=== PATIENT | male | born 1965 | race Caucasian/White ===

== ENCOUNTER 2019-02-05 02:17 | Outpatient (CLI) | payer BC, SELFPAY ==
[2019-02-05 11:34] LABS: Anion Gap 5.8 mmol/L (3-11); BUN 16 mg/dL (7-18); CO2 31.2 mmol/L (21.0-32.0); CREATININE 1.27 mg/dL (0.70-1.30); Calculated LDL 103 mg/dL; Chloride 107 mmol/L (98-107); Cholesterol 174 mg/dL (50-200); Estimated GFR 59.55 (mL/min/1.73m2); Glucose 104 mg/dL (70-100); HDL Cholesterol 48 mg/dL (40-60); Potassium 4.9 mmol/L (3.5-5.1); Sodium 144 mmol/L (136-145); Triglyceride 118 mg/dL (30-150)
== END 2019-02-05 02:37 ==
PROVIDERS: Nurse Practitioner; PCP Internal Medicine; Visit Provider Internal Medicine
DX: N18.3 Chronic kidney disease, stage 3 (moderate) (principal); Z13.6 Encounter for screening for cardiovascular disorders; Z13.1 Encounter for screening for diabetes mellitus
CPT/HCPCS: 36415; 80048; 80061; 83036

== ENCOUNTER 2019-02-14 01:07 | Outpatient (CLI) | payer BC, SELFPAY ==
--- NOTE | 2019-02-14 13:30 | DI.MRI_ITS ---
EXAM: MR BRAIN WO CLINICAL HISTORY: head pain, R51 TECHNIQUE: Multiplanar multisequence MRI of the brain was performed. COMPARISON: No exams were available for comparison FINDINGS: The ventricular system is normal in appearances. No signal abnormality identified in the brain. The orbital and temporal bone structures appears intact as does the pituitary. Diffusion weighted imaging shows No evidence of infarction. Susceptibility weighted imaging shows no evidence of intracranial hemorrhage. There is normal flow void in the [place] vasculature. IMPRESSION: Normal brain MRI
== END 2019-02-14 01:27 ==
PROVIDERS: PCP Internal Medicine; Visit Provider Nurse Practitioner
DX: R51 Headache (principal)
CPT/HCPCS: 70551

== ENCOUNTER 2019-03-03 10:45 | Outpatient (CLI) | payer BC, SELFPAY ==
[2019-03-03 12:59] LABS: Abs Immature Grans 0.02 k/cumm (0.0-0.09); Absolute Basophil Count 0.05 k/cumm (0.0-0.2); Absolute Eosinophil Count 0.22 k/cumm (0.0-0.7); Absolute Monocyte Count 0.74 k/cumm (0.11-0.7); Absolute Neutrophil Count 4.52 k/cumm (1.2-6.7); Basophils % 0.6; Eosinophils % 2.8; HCT 45.9 % (40.0-50.0); HGB 15.4 g/dL (13.5-17.5); Immature Grans % 0.3; Lymphocytes % 28.4; Mean Corp. HGB Concentration 33.6 g/dL (32.0-36.0); Mean Corpuscular Hemoglobin 31.1 pg (27.0-33.0); Mean Corpuscular Volume 92.7 fL (80-95); Mean Platelet Volume 10.8 fL (8.0-11.0); Monocytes % 9.5; Neutrophils % 58.4; Platelet Count 255 x1000/uL (130-400); RBC 4.95 m/cumm (4.50-6.00); RBC Distribution Width 13.1 % (11.8-14.1); White Blood Cell Count 7.75 k/cumm (4.4-10.8)
[2019-03-03 13:26] LABS: C-Reactive Protein 0.17 mg/dL (0.0-0.3); TSH (W/Ref FT4) 1.61 uIU/mL (0.36-3.74)
[2019-03-03 13:41] LABS: Vitamin D 25 Total 35.4 ng/ml (30-100)
[2019-03-03 14:20] LABS: ESR 7 mm/hr (1-20)
== END 2019-03-03 11:05 ==
PROVIDERS: PCP Internal Medicine; Visit Provider Internal Medicine
DX: R50.9 Fever, unspecified (principal); R51 Headache; M25.50 Pain in unspecified joint; R00.2 Palpitations; R79.89 Other specified abnormal findings of blood chemistry
CPT/HCPCS: 36415; 82306; 85652; 84443; 85025; 86140

== ENCOUNTER 2019-03-17 07:59 | Outpatient (CLI) | payer BC, SELFPAY | END 2019-03-17 08:19 | PROVIDERS: PCP Internal Medicine; Visit Provider Internal Medicine Cardiovascular Disease | DX: I48.20 Chronic atrial fibrillation, unspecified (principal) | CPT/HCPCS: 93005; 93010 ==

== ENCOUNTER 2019-05-30 06:12 | Day surgery (SDC) | payer BC, SELFPAY ==
[2019-05-30 06:15] VITALS: BP 130/80; PULSE 84; RESP 20; TEMP 36.7; O2SAT 95
[2019-05-30] MEDS: Lactated Ringers 1,000 ML 80 ML IV (06:56)
--- NOTE | 2019-05-30 07:13 | W.PM.HP.N ---
Date of service: 05/30/19 Time of Service: 07:13 Assessment and Plan Assessment and plan (1) Screening for colon cancer: Status: Acute Assessment and plan: I advised colonoscopy. The procedure was described including the risks of perforation with need for surgery or bleeding. Prep instructions discussed. Patient agrees to proceed. History of Present Illness Narrative: 53 y/o male with history of atrial fibrillation, sleep apnea and hyperlipidemia presents for his first screening colonoscopy. He denies a family history of colon cancer, however reports his father had several polyps. He denies any changes in bowel habits including bloody or black tarry stools, abdominal pain, diarrhea or constipation. He denies constitutional symptoms. Denies use of marijuana or any other recreational or illegal drugs. He denies chest pain, palpitations, dyspnea or dyspnea with exertion. He uses his CPAP nightly. 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 His last cardiology follow up was in 02/2019, he is currently working on towards weight loss and will follow up with them in 6 months. He denies prior history or family history of adverse reactions or complications with anesthesia. Review of Systems All systems reviewed & are unremarkable except as noted in HPI and below [facility] Medical History Atrial fibrillation F/U with Dr. Bravo History of cardioversion (06/23/16) Hyperlipidemia (Inactive) Sleep apnea with use of continuous positive airway pressure (CPAP) Tinnitus Social History Smoking/Tobacco Use Status: Never Alcohol Intake: current Alcohol Intake frequency: holidays/special occasions only Drug use: Never Substance use type: does not use What type of physical activity do you participate in: none and normal ROM and activity Do you feel safe at home: Yes Do you feel safe in your relationship?: Yes Meds Home Medications and Allergies Home Medications Medication Instructions Recorded Confirmed Type aspirin [Adult Low Dose Aspirin Ec] 81 mg PO DAILY #90 tab-cap 02/28/17 05/30/19 Rx CPAP MISCELLANEOUS 03/17/19 04/11/19 History cholecalciferol (vitamin D3) 25 1,000 unit PO DAILY 03/17/19 05/30/19 History mcg (1,000 unit) capsule omega-3 fatty acids-fish oil 300 1 cap PO DAILY cap 03/17/19 05/30/19 History mg-500 mg capsule diltiazem HCl 240 mg 240 mg PO DAILY #90 cap 04/19/19 05/30/19 Rx capsule,extended release 24 hr atorvastatin 20 mg tablet 20 mg PO DAILY #90 tab 04/25/19 05/30/19 Rx Allergies Allergy/AdvReac Type Severity Reaction Status Date / Time Sulfa (Sulfonamide AdvReac Intermediate Nausea Unverified 05/30/19 06:15 Antibiotics) Exam Const General: healthy appearing and not in acute distress Nutritional Appearance: well nourished Orientation: oriented x3 HENMT Head: normal to inspection Eyes Sclera: sclerae normal Pupils: PERRL Neck Neck: no lymphadenopathy Thyroid: thyroid normal Carotids: no bruits Resp Effort & Inspection: normal respiratory effort Auscultation: clear to auscultation bilaterally and no wheezes Cardio Rate: regular rate Rhythm: regular rhythm GI Inspection: non-distended Palpation: soft, no hepatosplenomegaly, no hernias and nontender Skin General skin exam: no rashes or lesions noted Neuro General: alert Cognition: normal cognition Extrem General: normal to inspection Psych Affect: normal affect Attitude: cooperative Results Last Vital Signs Temp 98.1 F 05/30/19 06:15 Pulse 84 05/30/19 06:15 Resp 20 05/30/19 06:15 BP 130/80 05/30/19 06:15 Pulse Ox 95 05/30/19 06:15
--- NOTE | 2019-05-30 08:05 | W.PM.DSUDISC ---
Discharge Plan Disposition Patient Disposition: HOME Condition: Good Discharge Details Reason For Visit: Colonoscopy Attending Provider: Rosemary Brown Primary Care Provider: Marita Delvalle Home Meds and New Rx's Prescriptions: Continued cholecalciferol (vitamin D3) 1,000 unit capsule 1,000 unit PO DAILY RF: 0 Fish Oil 300-500 mg capsule 1 cap PO DAILY RF: 0 CPAP miscellaneous RF: 0 aspirin [Adult Low Dose Aspirin] 81 MG tablet,delayed release (DR/EC) 81 mg PO DAILY Qty: 90 RF: 4 diltiazem HCl 240 mg capsule,extended release 24hr 240 mg PO DAILY Qty: 90 RF: 4 atorvastatin 20 mg tablet 20 mg PO DAILY Qty: 90 RF: 4 Discharge Instructions Additional Instructions: Findings: Your colonoscopy was normal. Follow up: Plan for routine screening colonoscopy in 10 years or sooner if symptoms arise. Please call if you develop: fevers >101.5 Nausea or Vomiting Abdominal pain that is not transient DAY SURGERY UNIT POST COLONOSCOPY INSTRUCTIONS 1. Because there will be medication in your system for the next 24 hours, you may feel a little sleepy. Your coordination will be affected. Therefore: a. Do not drive or operate dangerous equipment for 24 hours. b. Do not drink alcohol beverages for 24 hours (not even beer). c. Plan to go home and rest for the day. 2. Generally there are no restrictions on your activity after a day or so has gone by, but you may feel a bit fatigued for a few days. 3 After you arrive home you may have a light meal and return to a normal diet as you can tolerate it without feeling sick to your stomach. 4. After surgery, you may feel pain or discomfort. This should be only transient, but if it persists please contact your doctor. 5. If there are any questions regarding the findings of your procedure, please feel free to contact your doctor. 6. If you are unable to contact your doctor with a problem, contact the hospital at [phone]. 7. Continue all your regular medications unless directed otherwise. I understand the above instructions and have no questions. Signature of Patient or Responsible Adult Escort Date/Time Name of Responsible Adult Escort Signature of Nurse Date/Time Activity:: Activity as Tolerated Diet:: As Tolerated Discharge Orders Discharge Orders: Discharge Order (Routine); Ordered 05/30/19 Ordered By: Rosemary Brown DS: Diagnosis Discharge Diagnosis (1) Screening for colon cancer: Status: Acute
[2019-05-30 08:28] VITALS: BP 109/73; PULSE 80; RESP 18; TEMP 36.4; O2SAT 95
--- NOTE | 2019-05-30 10:49 | COLE_ITS ---
DATE OF PROCEDURE: May 30, 2019 PREOPERATIVE DIAGNOSIS: Screening. POSTOPERATIVE DIAGNOSIS: Normal colon. PROCEDURE: Colonoscopy. SURGEON: Rosemary Brown M.D. ANESTHESIA: General. INDICATIONS: This is a 53-year-old man who presents for his first screening colonoscopy. He is asym ptomatic and has no family history of colon cancer. His father did have polyps removed. PROCEDURE: He was placed in the left [place] position. Propofol was titrated to sedation. Digital rec stephanie exam revealed no abnormalities. The scope was advanced to the cecum without difficulty. His pre p was excellent. The ileocecal valve and appendiceal orifice were clearly identified. The scope was slowly withdrawn with no abnormalities seen within the ascending, transverse, descending, sigmoid co manuel or rectum, including on retroflex view. He tolerated the procedure well and was stable to recove ry. He will need a follow-up screening again in ten years or sooner if symptoms indicate. cc: Marita Delvalle M.D.
== END 2019-05-30 08:50 | disposition home or self-care (01) ==
PROVIDERS: PCP Internal Medicine; Visit Provider Surgery
PROC: 0DJD8ZZ Inspection of Lower Intestinal Tract, Via Natural or Artificial Opening Endoscopic (ICD-10-PCS; CPT 45378; principal; 2019-05-30 07:30)
DX: Z12.11 Encounter for screening for malignant neoplasm of colon (principal); G47.33 Obstructive sleep apnea (adult) (pediatric); Z99.89 Dependence on other enabling machines and devices
CPT/HCPCS: 45378; NC; J2704

== ENCOUNTER 2019-09-29 04:50 | Outpatient (CLI) | payer BC, SELFPAY | END 2019-09-29 05:10 | PROVIDERS: PCP Nurse Practitioner; Visit Provider Internal Medicine Cardiovascular Disease | DX: I48.91 Unspecified atrial fibrillation (principal) | CPT/HCPCS: 93225 ==

== ENCOUNTER 2019-10-03 11:22 | Outpatient (CLI) | payer BC, SELFPAY ==
--- NOTE | 2019-10-03 12:49 | W.HOLTRPT ---
Date of service: 10/03/19 Time of Service: 12:49 Holter Monitor Report Holter Monitor Note: There is a 48-hour Holter monitor ordered for the indication of atrial fibrillation. ?Patient was in atrial fibrillation for the entirety of the recording. ?Maximal heart rate was 166 bpm with an average heart rate of 106 bpm. ?The patient had no episodes of ventricular tachycardia and rare (0.1%) single ventricular ectopic beats. ?The patient had no pauses greater than 3 seconds or evidence of high degree heart block. ?There were no patient triggered events.
== END 2019-10-03 11:42 ==
PROVIDERS: PCP Nurse Practitioner; Visit Provider Internal Medicine Cardiovascular Disease
DX: I48.91 Unspecified atrial fibrillation (principal)
CPT/HCPCS: 93226

== ENCOUNTER 2019-10-21 01:35 | Outpatient (CLI) | payer BC, SELFPAY ==
--- NOTE | 2019-10-21 07:30 | DI.US_ITS ---
APPROVED REPORT EXAM: Comprehensive 2D, Doppler, and color-flow Echocardiogram Patient Location: Out-Patient Junior Estimator: Nehal Arzola RDCS (AE) Indications: Atrial Fibrillation Other Information Study Quality: Fair Conclusion Left Ventricle : The left ventricle is normal size. The left ventricular systolic function is normal. The left ventricular ejection fraction is within the normal range. There is normal left ventricular wall thickness. There is normal LV segmental wall motion. Diastolic function is indeterminate. LVEF i s 60%. Right Ventricle : The right ventricle is normal size. The right ventricular systolic function is norm al. The RVSP is 18.9 mmHg. Atria : The left atrium size is normal. The right atrium size is normal. Valves: There are no hemodynamically significant valvular lesions. Great Vessels : The aortic root is normal in size. The ascending aorta is normal in size. IVC is norm al in size and collapses >50% with inspiration. There is no prior echocardiogram available for comparison. Wall motion Left Ventricle The left ventricle is normal size. The left ventricular systolic function is normal. The left ventric ular ejection fraction is within the normal range. There is normal left ventricular wall thickness. T here is normal LV segmental wall motion. Diastolic function is indeterminate. There is no ventricular septal defect visualized. LVEF is 60%. Right Ventricle The right ventricle is normal size. The right ventricular systolic function is normal. The RVSP is 18 .9 mmHg. Atria The left atrium size is normal. The right atrium size is normal. Aortic Valve Aortic valve is trileaflet. There is no aortic valvular stenosis. No aortic regurgitation is present. Mitral Valve There is mitral annular calcification. No evidence of mitral valve stenosis. Trace to mild mitral reg urgitation. Tricuspid Valve The tricuspid valve is normal in structure. There is no tricuspid valve stenosis. Trace tricuspid reg urgitation. Pulmonic Valve The pulmonary valve is normal in structure. There is no pulmonic valvular stenosis. There is no pulmo rose valvular regurgitation. Great Vessels The aortic root is normal in size. The ascending aorta is normal in size. IVC is normal in size and c ollapses >50% with inspiration. Pericardium There is no pericardial effusion. There is no pleural effusion. 2D Dimensions IVSD d PLAX 0.81 cm M: 0.6-1.2 LV Vol A2C d MOD 121.2 mL LVPW d PLAX 0.82 cm M: 0.6 - 1.2 LV Vol A4C d MOD 123.8 mL LVID d PLAX 4.93 cm M: 4.2 - 5.8 LA vol/ BSA A2C s A-L 29.1 mL/m2 LVDs 3.60 cm M: 2.5 - 4.0 LA vol/ BSA A4C s A-L 56.3 mL/m2 Ao Root d 3.45 cm M: 3.1 - 3.7 LA Vol/ BSA Biplane s A-L 45.8 mL/m2 RA Area A4C 26.29 cm2 LA Area A4C s MOD 35.59 cm2 RA Vol/ BSA A4C s A-L 40.2 mL/m2 LA Area A2C s MOD 22.61 cm2 Ao Asc Diam d 3.49 cm M: 2.6 - 3.4 LV EF A4C MOD 66.0 % LV EF Teichholz 52.2 % LV EF A2C MOD 60.2 % LVEF (Morrison's) 60.91 % M: 52 - 72 LV EF Biplane MOD 60.9 % LV Volume 90.73 mL M: 62 - 150 SV 78.48 mL LV Volume Index 37.03 mL/m2 M: 34 - 74 SV Index 32.04 mL/m2 LV Vol Biplane MOD 128.9 mL FS 26.80 % M-Mode TAPSE 1.86 cm (M/F) >1.7 LV Diastology MV E' medial 0.134 (>0.07 m/s) MV E Vmax 1.05 (0.4-1.3 m/s) LV E/e MED 7.75 (<14) MV E' lateral 0.153 (>0.1 m/s) LV E/e LAT 6.80 (<14) MV E/E' medial 7.77 MV E/E' lateral 6.84 Aortic Valve LVOT Area 3.73 cm2 AoV Area Vmax 3.35 cm2 LVOT Vmax 1.06 m/s AoV Area/ BSA (Vmax) 1.37 cm2/m2 LVOT Mean Dustin. 0.84 m/s GENARO Mean Dustin. 3.56 cm2 LVOT Peak Grad 4.5 mmHg GENARO Mean Dustin. Index 1.45 cm2/m2 LVOT Mean Grad 3.0 mmHg LVOT VTI 0.198 m LVOT Diam s 2.15 cm AoV Vmax 1.18 m/s Velocity Ratio 0.89 AoV Mean Dustin. 0.88 m/s AoV Peak Grad 5.6 mmHg LVOT SV 73.77 mL AoV Mean Grad 3.3 mmHg AoV VTI 0.233 m AoV Area VTI 3.17 cm2 AoV Area/ BSA (VTI) 1.29 cm/m2 Mitral Valve MV DT 191 (160-240 msec) MV PHT 56 msec MV Area PHT 3.96 cm2 Pulmonary Valve PV Vmax 0.82 (0.5-1.5 m/s) RVOT Peak Gr. 1.69 mmHg PV Peak Grad 2.7 mmHg RVOT Mean Gr. 0.95 mmHg PV Mean Grad 1.6 mmHg RVOT VTI 0.138 m PV VTI 0.164 m RVOT Vmax 0.65 m/s Tricuspid Valve TR Peak Grad 15.9 mmHg TR Vmax 1.99 m/s RA Pressure 3.00 mmHg RVSP (TR) 18.9 mmHg
== END 2019-10-21 01:55 ==
PROVIDERS: PCP Nurse Practitioner; Visit Provider Internal Medicine Cardiovascular Disease
DX: I48.91 Unspecified atrial fibrillation (principal)
CPT/HCPCS: 93306

== ENCOUNTER → 2022-01-09 14:44 | Outpatient (CLI) | payer BC, SELFPAY ==
--- NOTE | 2022-01-09 14:15 | DI.RAD_ITS ---
Exam(s) XR CHEST 2V PA LATERAL EXAM: XR CHEST 2V PA LATERAL CLINICAL HISTORY: URI, ACUTE--J06.9 TECHNIQUE: 2D digital imaging was performed. COMPARISON: CR CHEST 2 VIEWS PA,LAT from 09/01/2015 FINDINGS: MEDIASTINUM: Normal. HEART: Normal. PULMONARY VASCULATURE: Normal. LUNGS: Minimal linear scarring left lung base, otherwise clear. PLEURAL SPACE: No pleural effusion or pneumothorax. BONE:Unremarkable for age. IMPRESSION: No acute abnormality. DATA REPOSITORY: RADIATION DOSE DELIVERED:
== END ==
PROVIDERS: PCP Nurse Practitioner; Visit Provider Nurse Practitioner Family
DX: J06.9 Acute upper respiratory infection, unspecified (principal); J98.4 Other disorders of lung
CPT/HCPCS: 71046

== ENCOUNTER 2022-03-23 09:43 | Outpatient (CLI) | payer BC, SELFPAY ==
--- NOTE | 2022-03-23 09:30 | RT.EKG_ITS ---
APPROVED REPORT Exam: Resting ECG Reason for Exam: Pre Op Patient Location: O HR:90 bpm ECG Measurements Heart Rate 90 [place] [id number] P [id number] QRSd 100 QRS 70 QT 350 T -9 QTc 429 Conclusion Atrial fibrillation...V-rate 70-109, irreg A-activity Borderline low voltage, extremity leads...all extremity leads <0.6mV Abnormal R-wave progression, early transition...QRS area>0 in V2
== END 2022-03-23 09:44 | disposition home or self-care (01) ==
LOC: DI.CM 09:46
PROVIDERS: PCP Nurse Practitioner Family; Visit Provider Nurse Practitioner Family
DX: G47.33 Obstructive sleep apnea (adult) (pediatric) (principal); Z86.79 Personal history of other diseases of the circulatory system; R94.31 Abnormal electrocardiogram [ECG] [EKG]; I48.91 Unspecified atrial fibrillation
CPT/HCPCS: 93010

== ENCOUNTER 2022-03-28 03:40 | Outpatient (CLI) | payer BC, SELFPAY ==
[2022-03-28 12:57] LABS: Calculated LDL 118 mg/dL (<100); Cholesterol 200 mg/dL (<200); HDL Cholesterol 57 mg/dL (40-60); Triglyceride 126 mg/dL (<150)
[2022-03-28 12:59] LABS: Hemoglobin A1C 5.9 % (<5.7)
== END 2022-03-28 03:41 | disposition home or self-care (01) ==
LOC: LOS 03:40
PROVIDERS: PCP Nurse Practitioner Family; Visit Provider Nurse Practitioner Family
DX: Z13.1 Encounter for screening for diabetes mellitus (principal); Z13.220 Encounter for screening for lipoid disorders
CPT/HCPCS: 36415; 80061; 83036

== ENCOUNTER 2023-08-13 05:13 | Outpatient (CLI) | payer BC, SELFPAY ==
[2023-08-13 12:48] LABS: Hemoglobin A1C 6.1 % (<5.7)
[2023-08-13 12:54] LABS: ALT 23 U/L (16-63); AST 15 U/L (15-37); Albumin 3.6 g/dL (3.4-5.0); Alkaline Phosphatase 93 U/L (46-116); Anion Gap 9.3 mmol/L (3-11); BUN 17 mg/dL (7-18); Bilirubin, Total 0.9 mg/dL (0.2-1.0); CO2 27.7 mmol/L (21.0-32.0); CREATININE 1.3 mg/dL (0.70-1.30); Calcium 8.7 mg/dL (8.5-10.1); Calculated LDL 114 mg/dL (<100); Chloride 107 mmol/L (98-107); Cholesterol 186 mg/dL (<200); Estimated GFR 64.47 (mL/min/1.73m2); Glucose 106 mg/dL (74-106); HDL Cholesterol 49 mg/dL (40-60); Sodium 144 mmol/L (136-145); Total Protein 6.8 g/dL (6.4-8.2); Triglyceride 116 mg/dL (<150)
[2023-08-13 19:14] LABS: PSA, Screening 3.7 ng/mL (<=3.5)
== END 2023-08-13 05:14 | disposition home or self-care (01) ==
LOC: LOS 05:13
PROVIDERS: PCP Nurse Practitioner Family; Visit Provider Nurse Practitioner Family
DX: Z00.00 Encounter for general adult medical examination without abnormal findings (principal); G47.33 Obstructive sleep apnea (adult) (pediatric); E78.2 Mixed hyperlipidemia
CPT/HCPCS: 36415; 80053; 80061; 84153; 83036

== ENCOUNTER 2024-05-05 04:28 | Outpatient (CLI) | payer BC, SELFPAY ==
[2024-05-05 18:12] LABS: PSA, Screening 1.2 ng/mL (<=3.5)
== END 2024-05-05 04:29 | disposition home or self-care (01) ==
LOC: LOS 04:28
PROVIDERS: PCP Nurse Practitioner Family; Visit Provider Nurse Practitioner Family
DX: R97.20 Elevated prostate specific antigen [PSA] (principal)
CPT/HCPCS: 36415; 84153

== ENCOUNTER 2024-06-06 00:11 | Outpatient (CLI) | payer BC, SELFPAY ==
--- NOTE | 2024-06-06 06:30 | DI.US_ITS ---
APPROVED REPORT EXAM: Comprehensive 2D, Doppler, and color-flow Echocardiogram Patient Location: Out-Patient Supervisor Extrusion: Jeremi Saenz RDCS (AE) Indications: Afib, h/o cardioversion Other Information Technically limited study due to body habitus. Conclusion Technically difficult but adequate study Normal left ventricular wall thickness and chamber size. Ejection fraction is 55%. There are no seg mental wall motion abnormalities Normal right ventricular size and function Both atria are moderately enlarged There is no structural or hemodynamically significant valvular disease Mildly dilated ascending aorta 3.51 cm Wall motion Left Ventricle The left ventricle is normal size. The left ventricular systolic function is normal. The left ventric ular ejection fraction is within the normal range. There is normal left ventricular wall thickness. T here is normal LV segmental wall motion. There is no ventricular septal defect visualized. LVEF is 55 %. Right Ventricle The right ventricle is normal size. The right ventricular systolic function is normal. Atria Left atrium is moderately dilated. Right atrium is moderately dilated. The interatrial septum is inta ct with no evidence for an atrial septal defect. Aortic Valve The aortic valve is normal in structure. Aortic valve is trileaflet. There is no aortic valvular sten osis. No aortic regurgitation is present. Mitral Valve The mitral valve is normal in structure. No evidence of mitral valve stenosis. There is no mitral michaela ve regurgitation noted. Tricuspid Valve The tricuspid valve is normal in structure. There is no tricuspid valve stenosis. Trace tricuspid reg urgitation. Pulmonic Valve The pulmonary valve is normal in structure. There is no pulmonic valvular stenosis. Trace pulmonic re gurgitation. Great Vessels The aortic root is normal in size. The ascending aorta is mildly dilated. IVC is normal in size and c ollapses >50% with inspiration. Pericardium There is no pericardial effusion. 2D Dimensions IVSD d PLAX 0.97 cm M: 0.6-1.2 Ao Root d 3.78 cm M: 3.1 - 3.7 LVPW d PLAX 0.97 cm M: 0.6 - 1.2 Ao Asc Diam d 3.51 cm M: 2.6 - 3.4 LVID d PLAX 5.05 cm M: 4.2 - 5.8 LVDs 3.59 cm M: 2.5 - 4.0 LV EF Teichholz 55.4 % FS 29.00 % LV EDV (Teich) 121.1 mL LV ESV (Teich) 54.0 mL Stroke Vol Index (Teich) 27.41 M-Mode TAPSE 1.52 cm (M/F) >1.7 Auto EF LV EDV A4C 124.1 mL LV EDV A2C 150.9 mL LV EDV BP 140.2 mL LV ESV A4C 59.5 mL LV ESV A2C 74.3 mL LV ESV BP 68.2 mL LVEF(%) A4C 52.0 % LVEF(%) A2C 50.7 % LVEF(%) BP 51.3 % LV SV A4C 64.6 ml LV SV A2C 76.6 ml LV SV BP 71.9 ml LV CO A4C 7.3 L/min LV CO A2C 8.6 L/min LV CO BP 7.9 L/min HR A4C 112.50 BPM HR A2C 112.79 BPM LV EDV Index (BP) LA Volume LA Length A4C 7.1 cm LA Length A2C 7.4 cm LA Area A4C s 31.01 cm2 LA Area A2C s 28.97 cm2 LA Vol A4C A-L 114.44 mL LA Vol A2C A-L 95.77 mL LA Vol Biplane A-L 106.9 mL LA Vol/BSA A4C A-L LA Vol/BSA A2C A-L LA Vol/BSA BP A-L 43.6 mL/m2 LA Vol A4C MOD 109.6 mL LA Vol A2C MOD 94.9 mL LA Vol BP MOD 103.7 mL RA Volume RA Area A4C 17.4 cm2 RA ESV A4C (A-L) 45.5mL RA Vol/BSA A4C A-L RA Length A4C 5.6 cm RA ESV A4C (MOD) 42.4mL LV Diastology MV E' medial 0.115 (>0.07 m/s) MV E Vmax 0.93 (0.4-1.3 m/s) MV E' lateral 0.186 (>0.1 m/s) Aortic Valve AoV Vmax 0.91 m/s LVOT Vmax 0.54 m/s AoV Peak Grad 3.3 mmHg LVOT Peak Grad 1.2 mmHg AoV Area (Vmax) 1.95 cm2 LVOT VTI 0.122 m AoV VTI 0.160 m LVOT Mean Grad 0.6 mmHg AoV Mean Dustin. 0.67 m/s LVOT SV 40.23 mL AoV Mean Grad 2.0 mmHg LVOT Diam s 2.00 cm AoV Area (VTI) 2.51 cm2 AV Regurg Peak Gr. 3.33 mmHg Velocity Ratio 0.59 Pulmonary Valve PV Vmax 0.58 (0.5-1.5 m/s) RVOT Vmax 0.46 m/s PV Peak Grad 1.4 mmHg RVOT Peak Gr. 0.8 mmHg PV Mean Dustin 0.46 m/s RVOT VTI 0.083 m PV Mean Grad 0.9 mmHg RVOT Mean Gr. 0.4 mmHg
== END 2024-06-06 00:31 ==
LOC: DI 00:11
PROVIDERS: PCP Nurse Practitioner Family; Visit Provider Internal Medicine Cardiovascular Disease
DX: I48.91 Unspecified atrial fibrillation (principal)
CPT/HCPCS: 93306

== ENCOUNTER → 2025-02-04 10:47 | Outpatient (CLI) | payer BC, SELFPAY ==
--- NOTE | 2025-02-04 15:01 | DI.RAD_ITS ---
Exam(s) XR CHEST 2V PA LATERAL EXAM: XR CHEST 2V PA LATERAL CLINICAL HISTORY: eval pathology ? pna, COUGH R05.9 TECHNIQUE: 2D digital imaging was performed of the chest. Two images were obtained. PA and lateral views were obtained. COMPARISON: CR XR CHEST 2V PA LATERAL from 01/09/2022 FINDINGS: MEDIASTINUM: Normal. HEART: Normal. PULMONARY VASCULATURE: Normal. LUNGS: There are no focal consolidating infiltrates. There is unchanged scarring in the left lingula. PLEURAL SPACE: No pleural effusion or pneumothorax. BONE:Within normal limits for the patient's age. OTHER FINDINGS:Normal. IMPRESSION: No acute pulmonary findings. DATA REPOSITORY: RADIATION DOSE DELIVERED:
== END ==
LOC: DI 03-03 10:47
PROVIDERS: PCP Nurse Practitioner Family; Visit Provider Nurse Practitioner Family
DX: R05.9 Cough, unspecified (principal)
CPT/HCPCS: 71046